=== PATIENT | female | born 1940 | race Asian ===

== ENCOUNTER 2017-05-31 18:33 | Emergency (ER) | END 2017-05-31 21:00 | disposition home or self-care (01) | DX: M25.561 Pain in right knee (principal); M17.11 Unilateral primary osteoarthritis, right knee | CPT/HCPCS: 73562; Z7502 ==

== ENCOUNTER 2017-11-03 08:34 | Inpatient (IN) | END 2017-11-08 16:40 | DRG 190 ==

== ENCOUNTER 2017-11-26 14:47 | Inpatient (IN) | END 2017-12-01 18:38 | DRG 190 ==

== ENCOUNTER 2018-09-04 14:36 | Emergency (ER) | END 2018-09-04 18:27 | disposition home or self-care (01) ==